=== PATIENT | female | born 1995 | race Caucasian/White ===

== ENCOUNTER → 2017-01-26 11:06 | Outpatient (CLI) | payer SELFPAY ==
[2017-01-26 12:15] LABS: APPEARANCE HAZY (CLEAR); BACTERIA MODERATE /hpf (NONE SEEN); BILIRUBIN NEGATIVE (NEGATIVE); COLOR YELLOW (YELLOW); EPITHELIAL CELLS 0-5 /hpf (0-5); GLUCOSE NEGATIVE (NEGATIVE); KETONE NEGATIVE (NEGATIVE); LEUKOCYTE ESTERASE 1+ (NEGATIVE); MUCUS <1+ /lpf (NONE SEEN); NITRITE NEGATIVE (NEGATIVE); PROTEIN NEGATIVE (NEGATIVE); RED CELLS - URINE OCC /hpf (0-5); SPECIFIC GRAVITY 1.005 (1.005-1.020); UROBILINOGEN NORMAL (NORMAL); WHITE CELLS - URINE 0-5 /hpf (0-5)
== END | disposition home or self-care (01) ==
LOC: D.LDO 11:06
PROVIDERS: Obstetrics & Gynecology
DX: Z34.03 Encounter for supervision of normal first pregnancy, third trimester (principal); Z3A.38 38 weeks gestation of pregnancy

== ENCOUNTER → 2017-02-04 16:46 | Outpatient (CLI) | payer SELFPAY ==
[~2017-02-04 16:46] MED LIST: ACETAMINOPHEN500 M1 PO; PRENATAL COMPLE1 TAB PO; VALTREX500 MG PO
[2017-02-04 17:42] LABS: APPEARANCE CLEAR (CLEAR); COLOR YELLOW (YELLOW); LEUKOCYTE ESTERASE TRACE (NEGATIVE)
[2017-02-04 17:43] LABS: BILIRUBIN NEGATIVE (NEGATIVE); GLUCOSE NEGATIVE (NEGATIVE); KETONE NEGATIVE (NEGATIVE); NITRITE NEGATIVE (NEGATIVE); PROTEIN NEGATIVE (NEGATIVE); UROBILINOGEN NORMAL (NORMAL)
[2017-02-04 17:44] LABS: BACTERIA MODERATE /hpf (NONE SEEN); EPITHELIAL CELLS 0-5 /hpf (0-5); RED CELLS - URINE OCC /hpf (0-5); WHITE CELLS - URINE 0-5 /hpf (0-5)
== END | disposition home or self-care (01) ==
LOC: D.LDO 16:46
PROVIDERS: Obstetrics & Gynecology
DX: O36.8130 Decreased fetal movements, third trimester, not applicable or unspecified (principal); Z3A.38 38 weeks gestation of pregnancy; M54.5 Low back pain

== ENCOUNTER → 2017-02-06 20:22 | Outpatient (CLI) | payer SELFPAY | END | disposition home or self-care (01) | LOC: D.LDO 20:22 | DX: O26.853 Spotting complicating pregnancy, third trimester (principal); Z3A.38 38 weeks gestation of pregnancy ==

== ENCOUNTER 2017-02-08 10:24 | Inpatient (IN) | payer SELFPAY ==
[2017-02-08] VITALS (10 sets, daily range): BP systolic 115–153; BP diastolic 77–97; Ht 162.6 cm; Wt 99.8 kg
[~2017-02-08] VITALS: Ht 162.6 cm; Wt 99.8 kg
[2017-02-08 11:20] LABS: APPEARANCE CLEAR (CLEAR); BILIRUBIN NEGATIVE (NEGATIVE); COLOR YELLOW (YELLOW); GLUCOSE NEGATIVE (NEGATIVE); KETONE NEGATIVE (NEGATIVE); LEUKOCYTE ESTERASE NEGATIVE (NEGATIVE); NITRITE NEGATIVE (NEGATIVE); PROTEIN NEGATIVE (NEGATIVE); UROBILINOGEN NORMAL (NORMAL)
[2017-02-08 14:19] LABS: UDS - AMPHET NEGATIVE QUAL (NEGATIVE); UDS - BARB NEGATIVE QUAL (NEGATIVE); UDS - BENZO NEGATIVE QUAL (NEGATIVE); UDS - COCAINE NEGATIVE QUAL (NEGATIVE); UDS - METH NEGATIVE QUAL (NEGATIVE); UDS - OPIATE NEGATIVE QUAL (NEGATIVE); UDS - PCP NEGATIVE QUAL (NEGATIVE); UDS - THC NEGATIVE QUAL (NEGATIVE)
[2017-02-08 14:28] LABS: HEMATOCRIT 39.8 % (36.0-48.0); HEMOGLOBIN 13.7 g/dL (12-16); MCH 31.3 pg (26.0-34.0); MCHC 34.4 g/dL (31.0-37.0); MCV 90.9 fL (80.0-100.0); MEAN PLATELET VOLUME 10.1 fL (7.4-10.4); RBC 4.38 10x6/uL (4.00-5.40); RDW 13.8 % (11.5-14.5); WBC 10.6 10x3/uL (4.8-10.8)
--- NOTE | 2017-02-08 19:01 | NUR ---
BABY IS BORN 185, CORD BLOOD IS TAKEN , RESPIRATORY PAGED, SPECIMANS LEFT AT L&D DESK, RN NOTIFIED. BLOOD SPECIMAN TAKEN TO RN IN NURSERY. DAD ESCORTS BABY TO NURSERY WITH RN
--- NOTE | 2017-02-08 19:54 | NUR ---
RECEIVED PT VIA BED FROM RR POST C/S PER DR MICHELLE, PT TO ROOM 1222, IV IN RIGHT HAND INTACT WITH NO REDNESS OR EDEMA, NS WITH PITOCIN TO PUMP INFUSING AT 125 ML/HR, VS INITIATED, ASSESSMENT STARTED, PT STARTING TO C/O INC PAIN, WILL INITIATE SHERIFFS DETECTIVE
--- NOTE | 2017-02-08 20:07 | NUR ---
DILAUDID SEMICONDUCTOR PACKAGES TESTER INITIATED, PT INST ON AND PUSHES BUTTON AT THIS TIME, FF, ML, 1/U, LITE BLEEDING NOTED WITH NO CLOTS, MIKE PAD CHANGED, INFORMED PT I WILL CHANGE PINK PAD AND BLUE CHUX, DUE TO BEING BUNCHED UP UNDERNEATH PT, WHEN PAIN IS UNDER CONTROL, [employer] WITH DRESSING CDI WITH NO DRAINAGE NOTED, ICE PACK TO ABD, SANTIZO CATH INTACT, DRAINING CLEAR YELLOW URINE, EMPTIED OUT 600 MLS FROM SANTIZO, SCD'S APPLIED AND WORKING PROPERLY
--- NOTE | 2017-02-08 20:30 | NUR ---
ASSESSMENT COMPLETED, PT ORIENTED TO ROOM, BED IN LOW POSITION, SIDE RAILS X 2, FAMILY TO ROOM
--- NOTE | 2017-02-08 20:37 | NUR ---
ADM BOLUS PER MD ORDERS, SEE EMAR
--- NOTE | 2017-02-08 20:47 | NUR ---
NEW BAG OF NS WITH PITOCIN HUNG IV INFUSING VIA PUMP AT 125 ML/HR
--- NOTE | 2017-02-08 21:15 | NUR ---
VS CONTINUE, PT RATES INC PAIN 6-03/31 AT THIS TIME, REQUESTED AND SERVED FRESH H20, PT CONTINUES VISITING WITH FAMILY AND FRIENDS
--- NOTE | 2017-02-08 21:20 | NUR ---
FAMILY HAS LEFT NOW, ENC PT TO CLOSE EYES AT THIS TIME TO REST, PT STATES "I'M GOING TO, I'M SO SLEEPY RIGHT NOW"
--- NOTE | 2017-02-08 22:00 | NUR ---
PT RESTING WITH EYES CLOSED, AROUSES TO SOFT VERBAL STIMULATION, INFORMED PT THAT I NEEDED TO CHECK HER BLEEDING, AND THAT I WILL BE CALLING DR MICHELLE ABOUT BP'S, PT STATES "I'M PRETTY SURE ITS JUST UP BECAUSE I'M A LITTLE ANXIOUS ABOUT WANTING TO SEE BABY AND I HAVEN'T HAD MUCH SLEEP", PINK PAD, BLUE CHUX AND MIKE PAD CHANGED, MOD BLEEDING NOTED, MIKE CARE DONE WITH WET WARM WASH CLOTHS, PT REPORTS PAIN /10, EMPTIED 300 MLS OF CLEAR YELLOW URINE FROM SANTIZO, PT REQUESTED AND SERVED FRESH H20, INQUIRES ABOUT BABY, INFORMED PT THAT I WILL CHECK FOR HER, NSY NOTIFIED, GETTING READY TO DO VITALS ON BABY, PT INFORMED, VERBALIZES UNDERSTANDING
--- NOTE | 2017-02-08 22:15 | NUR ---
DR MICHELLE NOTIFED, REPORT OF BP'S, ORDERS TO CALL IF SYSTOLIC >160 OR DIASTOLIC >100
--- NOTE | 2017-02-08 22:18 | NUR ---
PT AWAKE, HOLDING BABY, JAYMIE LARA, RN IN ROOM GOING OVER PAPER WORK, BP CUFF OFF AT THIS TIME BECAUSE PT IS GOING TO BREASTFEED BABY
--- NOTE | 2017-02-08 23:00 | NUR ---
PT BABY, VS OBTAINED, PT RATES INC PAIN 12/30, REQUESTED AND SERVED FRESH H20, PT DENIES FURTHER NEEDS, BEDDING PROVIDED TO FRIEND
[2017-02-09 00:10] VITALS: BP 140/91
--- NOTE | 2017-02-09 00:10 | NUR ---
PT FINISHED , VS OBTAINED, EMPTIED 600 MLS OF CLEAR YELLOW URINE FROM SANTIZO, LITE BLEEDING NOTED WITH NO CLOTS, PT REQUESTED AND PROVIDED PACIFIER, RATES INC PAIN 4/10, DENIES FURTHER NEEDS, FRIEND AT BEDSIDE
--- NOTE | 2017-02-09 00:48 | NUR ---
PT READY TO GET SOME REST, BABY TO NSY VIA OPEN CRIB CART PER THIS RN, PT DENIES FURTHER NEEDS, FEMALE FRIEND AT BEDSIDE
--- NOTE | 2017-02-09 02:10 | NUR ---
PT RESTING WITH EYES CLOSED, RESP QUIET, NO DISTRESS NOTED, LEFT UNDISTURBED AT THIS TIME, FRIEND ASLEEP IN RECLINER
[2017-02-09 03:35] VITALS: BP 131/77
--- NOTE | 2017-02-09 03:35 | NUR ---
PT LEATHER TOGGLER LIGHT, PT REQUESTED PILLOW, VS OBTAINED, I&O'S COLLECTED, BLUE CHUX AND MIKE PAD CHANGED, LIGHT BLEEDING NOTED WITH NO CLOTS, WAS GOING TO REPOSITION PT, BUT BABY TO ROOM VIA OPEN CRIB CART PER JAYMIE LARA, CASSIE, PT REQUESTED AND SERVED FRESH H20 AND STRAWBERRY JELLO, EXTRA BLANKET PROVIDED TO FAMILY MEMBER, PT DENIES FURTHER NEEDS
--- NOTE | 2017-02-09 04:30 | NUR ---
NEW BAG OF NS WITH PITOCIN HUNG IV INFUSING VIA PUMP AT 125 ML/HR, PT REQUESTED AND SERVED FRESH H20, LOVINGLY HOLDING BABY SKIN TO SKIN, DENIES FURTHER NEEDS, FAMILY MEMBER ASLEEP IN RECLINER
--- NOTE | 2017-02-09 04:55 | NUR ---
PT CLINIC ADMINISTRATOR LIGHT, PT REQUESTED NSY NURSE, THIS RN CALLS ROMULO, JAYMIE LARA,CASSIE TO ROOM
--- NOTE | 2017-02-09 05:00 | NUR ---
PT AT THIS TIME NOW, SNACK BOX PROVIDED, PT INFORMED THAT DR MICHELLE ORDERED A REGULAR BREAKFAST, PT STATES "THATS GOOD, I'M STARVED", DENIES NEEDS AT THIS TIME
--- NOTE | 2017-02-09 06:37 | NUR ---
SHIFT REPORT TO DAY SHIFT
[2017-02-09 06:39] LABS: BASOPHILS 0.1 % (0-2); EOSINOPHILS 0.2 % (0-7); HEMATOCRIT 35.5 % (36.0-48.0); HEMOGLOBIN 12.1 g/dL (12-16); IMMATURE GRANULOCYTES 0.6 % (0-5); LYMPHOCYTES 16.5 % (15-50); MCH 30.9 pg (26.0-34.0); MCHC 34.1 g/dL (31.0-37.0); MCV 90.8 fL (80.0-100.0); MEAN PLATELET VOLUME 9.6 fL (7.4-10.4); MONOCYTES 7.1 % (2-11); NEUTROPHILS 75.5 % (40-80); RBC 3.91 10x6/uL (4.00-5.40); RDW 13.8 % (11.5-14.5); WBC 12.6 10x3/uL (4.8-10.8)
[2017-02-09 06:40] LABS: PLATELET COUNT 173 10x3/uL (130-400)
--- NOTE | 2017-02-09 07:00 | NUR ---
SBAR HANDOFF RECEIVED FROM Yair AVALOS RN. SUPINE IN BED WITH HOB ELEVATED 40 DEGREES. SKIN WARM DRY AND PINK. NACL WITH 20 UNITS PITOCIN AND DILAUDID LEARNING ADMINISTRATOR INFUSING TO RIGHT HAND AT RX RATES PER IV PUMP AND WITH NO SIGNS OF COMPLICATIONS AT INSERTION SITE. RESP REG AND EVEN. LUNG SOUNDS CTA AND = BILATERALLY. BOWEL SOUNDS ACTIVE; STATES SHE HAS PASSED GAS RECTALLY X 1 AND DENIES NAUSEA. STATES SHE IS HUNGRY. SANTIZO PATENT WITH CLEAR YELLOW URINE AND SECUREMENT DEVICE INTACT TO RIGHT THIGH. SCD TO BLE WITH PUMP ON AND FUNCTIONING PROPERLY.
[2017-02-09 07:20] VITALS: BP 121/70
--- NOTE | 2017-02-09 07:21 | NUR ---
VITALS TAKEN AND RECORDED. LYING IN BED WITH FAMILY AT BEDSIDE. STATES THAT SHE IS LOOKING FORWARD TO GETTING UP. PROVIDED SANTIZO CARE AND EMPTIED 650 ML OF CLEAR YELLOW URINE FROM WELL DRAINING SANTIZO PARK. ASSURED HER THAT SHE WOULD BE UP AND ABOUT TODAY. S/R UP X 2, BED IN LOWEST POSITION, CALL LIGHT WITHIN REACH.
--- NOTE | 2017-02-09 08:20 | NUR ---
PROVIDED SMALL PILLOW AND RE-EXPLAINED THE USE WHEN COUGHING, AND THE IMPORTANCE OF DEEP BREATHING AND TURNING FREQUENTLY. STATES UNDERSTANDING.
--- NOTE | 2017-02-09 09:30 | NUR ---
DILAUDID HIDE PASTER DISCONTINUED AND IV RIGHT HAND SALINE LOCKED; FLUSHES EASILY; NO SIGNS OF COMPLICATIONS AT INSERTION SITE. SANTIZO CATHETER REMOVED NOTING TIP INTACT. INSTRUCTED PATIENT TO MEASURE VOIDS X 3 AND NOTIFY NURSE OF ANY ABD DISCOMFORT OR INABILITY TO VOID WITHIN 6 HR AFTER REMOVAL.
--- NOTE | 2017-02-09 09:50 | NUR ---
ASSISTED MOTHER WITH LATCH FOR ; SKIN TO SKIN CONTACT; CROSS CRADLE HOLD; NOTING PROPER LATCH/SUCK/SWALLOW.
--- NOTE | 2017-02-09 10:20 | NUR ---
SHOWERED WITH ASSIST. LINENS CHANGED.
--- NOTE | 2017-02-09 10:30 | NUR ---
VOIDED 200ML URINE WITH NO REPORTED DIFFICULTY. REQUESTS WALK IN [place] AND BREAST PUMP
--- NOTE | 2017-02-09 10:43 | NUR ---
PT HAS BEEN UP AMBULATING THE UNIT FOR 10 MINUTES WITH FAMILY BUT IS NOW BACK OT ROOM. STEADY, EVEN, UPRIGHT GAIT. STATES NO FURTHER NEEDS AT THIS TIME.
--- NOTE | 2017-02-09 11:30 | NUR ---
REASSESSED PAIN TO BE DOWN FROM 10 TO A 4 ON NUMERICAL SCALE. FAMILY AT BEDSIDE. STATES THAT NIPPLE SHEILD HELPED WHEN NURSING. STATES NO FURTHER NEEDS AT THIS TIME.
--- NOTE | 2017-02-09 12:30 | NUR ---
UP TO BATHROOM TO VOID 300ML WITH NO REPORTED DIFFICULTY. REMAINS STABLE. UP AND ABOUT IN ROOM AND HALLS. ATTENTIVE TO AND BONDING WELL. MULTIPLE VISITORS AT BEDSIDE AT FREQUENT INTERVALS. REPORTS PAIN MANAGED WELL WITH ANALGESIA GIVEN AFTER TRANSIT POLICE OFFICER DC'D
--- NOTE | 2017-02-09 13:59 | NUR ---
VOIDED 400ML UOP. REPORTS SCANT LOCHIA RUBRA. UP AND ABOUT IN ROOM AND HALLS. IBUPROFEN GIVEN WITH CRACKERS. NO DISTRESS NOTED OR REPORTED. BONDING WELL WITH .
[2017-02-09 14:00] VITALS: BP 114/76
--- NOTE | 2017-02-09 14:50 | NUR ---
DISCHARGED HOME IN STABLE CONDITION PER W/C TO PRIVATE AUTO.
[2017-02-09 15:36] LABS: BASOPHILS 0.1 % (0-2); EOSINOPHILS 0.4 % (0-7); HEMATOCRIT 34.7 % (36.0-48.0); HEMOGLOBIN 11.7 g/dL (12-16); IMMATURE GRANULOCYTES 0.5 % (0-5); LYMPHOCYTES 16.5 % (15-50); MCH 31.2 pg (26.0-34.0); MCHC 33.7 g/dL (31.0-37.0); MCV 92.5 fL (80.0-100.0); MEAN PLATELET VOLUME 9.7 fL (7.4-10.4); MONOCYTES 7.3 % (2-11); NEUTROPHILS 75.2 % (40-80); PLATELET COUNT 194 10x3/uL (130-400); RBC 3.75 10x6/uL (4.00-5.40); RDW 14.1 % (11.5-14.5); WBC 13.3 10x3/uL (4.8-10.8)
--- NOTE | 2017-02-09 15:50 | NUR ---
UP AND ABOUT IN ROOM AND HALLS. BONDING WITH WELL. NO SIGNS OF DISTRESS NOTED OR REPORTED. REPORTS NO DIFFICULTY VOIDING. REPORTS PASSAGE OF GAS RECTALLY. DENIES NAUSEA.
--- NOTE | 2017-02-09 17:51 | NUR ---
INSTRUCTED MOTHER ON USE OF BREASTPUMP, TO PUMP 10 MIN EACH BREAST EVERY 2 HR WHILE AWAKE. UP AND ABOUT IN ROOM AND HALLS. ATTENTIVE TO . REPORTS VOIDING WITHOUT DIFFICULTY AND LOCHIA RUBRA MODERATE AMT.
[2017-02-09 19:35] VITALS: BP 125/70
--- NOTE | 2017-02-09 19:35 | NUR ---
AWAKE DURING INITIAL ROUNDS. INTRODUCED SELF. V/S TAKEN. ASSESSMENT DONE. STATUS POST PRIMARY C/S YESTERDAY FOR NON-REASSURING FETAK STATUS. . LOW TRANSVERSE ABD INCISION WITH CRISTA INTACT. SALINE LOCK TO R HAND. LOCHIA RUBRA MODERATE TO LIGHT, VOIDING WELL, PASSING FLATUS, PER PATIENT. IN THE ROOM IN OPEN CRIB.
--- NOTE | 2017-02-09 20:00 | NUR ---
SALINE LOCK DC'd PER PT's REQUEST. CATH TIP INTACT.
--- NOTE | 2017-02-09 21:20 | NUR ---
CALL LIGHT ANSWERED. ASSISTED WITH UNTIL BABY LATCHED-ON/ BONDING WELL. FOB IN THE ROOM.
--- NOTE | 2017-02-09 22:00 | NUR ---
BOTTLE-FEEDING HER BABY. GOOD INFANT-MATERNAL BONDING.
--- NOTE | 2017-02-09 22:58 | NUR ---
RN CALLED TO PT BS. PT C/O PAIN, RATES 05/01, REQUEST MEDICATION. 1 TAB NORCO 10 AND 1 TAB IBUPROFEN PROVIDED AT THIS TIME WITH FRESH WATER. PT DENIES ANY FURTHER NEEDS AT THIS TIME. BED IN LOW POSITION, SIDE RAILS UP TIMES 2, CALL LIGHT AND PHONE IN REACH. AT PT BS FOR COUPLET CARE. WILL CONT TO MONITOR PT STATUS.
--- NOTE | 2017-02-10 | NUR ---
AWAKE. DENIES NEEDS.
--- NOTE | 2017-02-10 02:10 | NUR ---
APPEARS TO BE ASLEEP. LEFT UNDISTURBED.
--- NOTE | 2017-02-10 04:05 | NUR ---
EYES CLOSED. LEFT UNDISTURBED.
--- NOTE | 2017-02-10 06:00 | NUR ---
SLEPT FAIRLY WELL DURING THE NIGHT. CONTINUING PLAN OF CARE.
--- NOTE | 2017-02-10 06:46 | OP ---
PATIENT NAME: GURPREET MONTENEGRO MEDICAL RECORD: [id number] :97 LOCATION:[id number] ADMISSION DATE:02/08/17 SURGEON: HERMAN CASTILLO MD DATE OF OPERATION: 02/08/2017 PREOPERATIVE DIAGNOSES: 1. Term intrauterine in active labor. 2. Particulate meconium. 3. bradycardia/ intolerance to labor. POSTOPERATIVE DIAGNOSES: 1. Term intrauterine in active labor. 2. Particulate meconium. 3. bradycardia/ intolerance to labor. 4. Occiput posterior presentation. SURGEON: Herman Castillo MD. PROCEDURE: Primary low transverse section via Pfannenstiel skin incision. ANESTHESIA: Epidural. INTRAVENOUS FLUIDS: Per anesthesia records. ESTIMATED BLOOD LOSS: 1000 cc. SPECIMENS: Placenta and cord for gases. FINDINGS: 1. Viable in the occiput posterior presentation. 2. Placenta delivered manually intact, 3-vessel cord noted. 3. Grossly normal appearing adnexa bilaterally. COMPLICATIONS: None apparent. PROCEDURE IN DETAIL: The patient was taken to the operating room where epidural anesthesia was achieved without difficulty. The patient was then prepped and draped in normal sterile fashion in the dorsal supine position. SCDs were on and functioning normally. The patient had a Pulliam catheter already placed, which was draining freely. The patient was then prepped and draped. A Pfannenstiel skin incision was made, extended downward to the underlying subcutaneous fat to level of the fascia, which was then excised in the midline using the scalpel. The fascial incision was then excised bilaterally using the Ochoa scissors. The superior and inferior aspects of the fascial incision were then grasped with Jimmy clamps times 2, tented upward, and sharply dissected from the underlying rectus muscle using the Ochoa scissors and the Bovie cautery. At this point, the rectus muscles were bluntly in the midline and the peritoneum was entered at the superior aspect of the incision bluntly. The peritoneal incision was then stretched and also excised bilaterally using the Metzenbaum scissors. A bladder blade was placed into the pelvis. A bladder flap was created by excising the anterior leaf of the broad ligament across the lower uterine segment using the Metzenbaum scissors. A low transverse incision was then made and extended superiorly and inferiorly using the Pelosi method. The infant's head was delivered atraumatically followed by the body. The infant OPERATIVE REPORT [id number] GURPREET MONTENEGRO was bulb suctioned upon delivery and the cord was clamped times 2, cut, and the was handed to the awaiting nursery team. At this point, the placenta was delivered manually intact, 3-vessel cord was noted. Uterus was exteriorized, cleared of all clots and debris and vigorously massaged until good hemostasis was noted. The uterine incision was repaired with 0 Vicryl in a running locked fashion times 2 with good hemostasis noted. Posterior cul-de-sac was then thoroughly irrigated and the uterus was replaced into the pelvis. The anterior cul-de-sac was then irrigated and again meticulous hemostasis was noted from the uterine incision. At this point, counts were correct times 2. The fascia was repaired with 0 loop PDS times 1 and the skin repaired with dylon following approximation of subcutaneous fat using 2-0 plain gut suture. The patient tolerated the procedure well, transferred to postanesthesia recovery stable without incident. TRANSINT:[id number] Voice Confirmation ID: [id number] DOCUMENT ID: [id number] HERMAN CASTILLO MD at 0646 CC: [id number] DICTATION DATE: 02/09/17822 FOOTWEAR SALES REPRESENTATIVE: 02/09/17 1723 ADM IN [place] [id number] [place] [id number]
--- NOTE | 2017-02-10 07:15 | NUR ---
PT IS SITTING UP IN BED. EATING BREAKFAST. PT REQUESTED PAIN MED. STATES PAIN IS ABOUT AN 8. HER PAIN IS IN HER ABDOMEN AROUND INCISION. INCISION IS CLEAN AND DRY, CRISTA INTACT. HER LOCIA IS SMALL. GEN- AWAKE AND ALERT. LUNGS- CLEAR. HEART- RRR. BED IS LOW, SIDE RAILS UP X 2 AND CALL LIGHT IN REACH. PT WAS GIVEN NORCO AND MOTRIN FOR PAIN.
[2017-02-10 07:26] VITALS: BP 121/67
--- NOTE | 2017-02-10 09:09 | NUR ---
PT IS SLEEPING IN BED. SHE IS HOLDING BABY. BABY SI ALSEEP ALSO. I PUT BABY IN HER BASSINET. DISCUSSED THE IMPORTANCE OF THIS WITH MOM. SHE UNDERSTANDS. SIDE RAILS UP X 2, CALL LIGHT IN REACH AND BED IS LOW.
--- NOTE | 2017-02-10 10:30 | NUR ---
PT IS HOLDING BABY. PT IS SITTING UP IN BED. BED IS LOW, SIDE RAILS UP X 2 AND CALL LIGHT IN REACH. PT STATES THAT HER MOTHER WILL BE PICKING HER UP. SHE WOULD LIKE TO BE DISCHARGED AROUND LUNCH OR AFTER.
--- NOTE | 2017-02-10 10:40 | NUR ---
Jayda Huffman 02/10/17 S: Patient states is going ruff, states her left nipple was bleeding when she trying latching baby before. Hasn't really tried latching or pumping since yesterday. Had an emergency , Friday night. States she should be going home sometime today. O: Patient semi reclined in bed, cuddling with infant, lights off, states just finish bottle feeding. It's important to get help with , as needed. Offered to make an appointment with , after she is discharged to get help with . Provided work cell number. I can see her later today if she is willing to come to the health department. Patient states she can show me her nipples and get help later, she does want to breastfeed. In case she is unable to make it today, I would like to review some things with her. Sore nipples are due to incorrect latching, and that's an easy fix. Explain how to hold infant for feedings. Turn tummy to tummy, nose opposite of nipple, gently support head, and allow to self-latch. Infant should be placed directly in front of the breast. Breastfed babies should feed on demand, when feeding cues have been observed. Allowing to feed on demand will help with establishing your milk supply. What baby takes out your body will make more of. Explain breastmilk composition. takes time and patience in the beginning. Provided and explained handouts on engorgement, skin to skin, waking a sleeping baby, feeding cues, hand expressing, starting a feeding, and positions for . Recommend patient contact LC when she is discharged, I can help her with latching infant. A: Client expresses concern with sore nipples P: Patient will make an appointment with , after discharge, to get help with . Noam Rogers, CLC
[2017-02-10] MEDS ORDERED: HYDROCODONE-APA1 TAB PO (11:16)
[2017-02-10] MEDS ORDERED: MOTRIN600 MG PO (11:17)
--- NOTE | 2017-02-10 12:19 | NUR ---
PT IS SITTING UP IN BED EATING LUNCH. SHE OFFERS NO COMPLAINTS AT THIS TIME.
--- NOTE | 2017-02-10 12:54 | NUR ---
NURSERY DISCHARGED BABY. DISCHARGE INSTRUCTIONS DISCUSSED WITH MOM AND HANDOUTS GIVEN. PRESCRIPTIONS ANF FU APPT CARDS ALSO GIVEN.
--- NOTE | 2017-02-10 13:56 | NUR ---
PT WAS DISCHARGED HOME. SHE WAS TAKEN BY WHEELCHAIR TO FRONT OF HOSPITAL TO VEHICLE.
[2017-02-11 07:25] LABS: RAPID PLASMA REAGIN Non Reactive (Non Reactive)
== END 2017-02-10 13:57 | disposition home or self-care (01) | DRG 765 ==
LOC: D.LDO 10:24 → D.WS 12:47 → D.LD 12:47 → D.WS 19:53 → D.LD 02-09 18:48
PROVIDERS: ADMIT Obstetrics & Gynecology
PROC: 10D00Z1 Extraction of Products of Conception, Low, Open Approach (ICD-10-PCS; principal; 2017-02-08 18:00)
DX: O41.03X0 Oligohydramnios, third trimester, not applicable or unspecified (principal); O99.324 Drug use complicating childbirth; O98.52 Other viral diseases complicating childbirth; Z3A.38 38 weeks gestation of pregnancy; Z37.0 Single live birth; O76 Abnormality in fetal heart rate and rhythm complicating labor and delivery; O77.0 Labor and delivery complicated by meconium in amniotic fluid; F12.90 Cannabis use, unspecified, uncomplicated; B00.9 Herpesviral infection, unspecified; O64.0XX0 Obstructed labor due to incomplete rotation of fetal head, not applicable or unspecified